=== PATIENT | male | born 1990 | race Two or more races ===

== ENCOUNTER 2023-11-21 17:33 | Emergency (ER) | payer OTHER, SELFPAY ==
[2023-11-21 17:40] VITALS: BP 138/94; PULSE 75; O2SAT 96
[2023-11-21 17:45] VITALS: BP 147/100; PULSE 96; RESP 18; TEMP 36.9; O2SAT 94; BMI 22.8
--- NOTE | 2023-11-21 18:12 | ED_ITS ---
HPI - Psych General Chief Complaint: ETOH/Substance Use Stated Complaint: withdrawl Time Seen by Provider: 11/21/23 18:12 Source: patient and EMS Mode of arrival: EMS Limitations: other (poor historian) History of Present Illness ED Provider: Daniel Wang PA-C HPI Narrative: 33-year-old male with a history of polysubstance abuse presents to the ER AMS from [facility] for evaluation of withdrawal from several substances. He is on a section 12. Patient reports he is withdrawing from heroin, fentanyl, crack, alcohol and has not had anything in 2 days. He received Ativan for withdrawal symptoms at 03:30 this afternoon. He states he smokes a bundle of fentanyl per day and drinks 1 pt of liquor per day. Last drug and alcohol use was 2 days ago. Earlier today he was at [facility] question of a senior care versus hospital and then was transferred to [facility] for treatment. He states he got 16 mg of Suboxone at some point today but made his symptoms worse. He feels increased restlessness. States he also got Ativan. He was about to be discharged from this [facility] when he was extremely frustrated that his symptoms were being controlled, he reported suicidal ideation and endorsed suicidal thoughts. No plan. No homicidal thoughts. No hallucinations. He states he has been on Suboxone and methadone in the past. Spoke with nurse at [facility] - she reports the patient came from [facility] around 3:50 today. Patient was initially brought to [facility] after being found sleeping on a park bench yesterday. Was reportedly detoxing there. He was complaining of chest pain and was cleared from a cardiac standpoint. When he was going to be discharged he reported suicidal ideation with plan to jump into traffic or overdose. He was exhibiting withdrawal symptoms and was treated with Ativan 3 mg and Suboxone 8 mg. On arrival to [facility] patient refused to shower, was very malodorous. He drank a bottle of mouthwash. He was lying on the ground kicking and very uncomfortable. He refused to partake in intake interview. He reports he was detoxing. Inpatient psychiatrist came to evaluate the patient who determined they were most likely experiencing detox symptoms and would benefit from hospital evaluation as they are primarily psych. Patient's home medication from general pharmacy include prazosin 1 mg every night, trazodone 100 mg every night, bupropion 300 mg daily, gabapentin 600 mg daily, Suboxone 1.5-2 tabs daily. Unclear who prescribes these medications the patient or what the underlying psych diagnoses are MD complaint: suicidal ideation, substance abuse and alcohol abuse Onset (ago): day(s) Duration: changing over time History of same: Yes Relieving factors: medication Exacerbating factors: alcohol and drug use Associated symptoms: nausea and other (Hopelessness, goose bumps skin, anxiety) Treatments prior to arrival: placed on mental health hold Related Data Allergies Allergy/AdvReac Type Severity Reaction Status Date / Time No Known Allergies Allergy Verified 11/21/23 17:49 Review of Systems 2 Review of Systems: Yes all other systems are reviewed and are negative [facility] Social History Social History Advance Directives: No Advance Directives Information Provided: No Do you have a plan to hurt others: No Plan Physical Exam 2 Vital Signs: Vital Signs: Last Vital Signs Temp 98.7 F 11/21/23 22:09 Pulse 62 11/21/23 22:09 Resp 18 11/21/23 22:09 BP 136/92 H 11/21/23 22:09 Pulse Ox 100 11/21/23 22:09 O2 Del Method Room Air 11/21/23 22:09 BMI result Body Mass Index 22.8 Appearance: Alert. Oriented X3. No acute distress. Calm and cooperative Head: normocephalic, atraumatic. Eyes: Pupils equal, round and reactive to light. ENT: Pharynx normal. No tonsillar swelling or exudate. Neck: Normal inspection. Neck supple. CVS: Normal heart rate and rhythm. Pulses normal. Respiratory: No respiratory distress. Breath sounds normal. Abdomen: Well-healed surgical scar over the right upper quadrant. Soft and nontender. +BS x4 Skin: Skin warm and dry. Normal skin color. Normal skin turgor. No rashes. Extremities: No lower extremity edema. No joint swelling. No tremors. Neuro/psych: Oriented X 3. No motor deficit. No sensory deficit. CN II-XII intact. Normal speech and cognition. Yawning. No suicidal thoughts. No hallucinations. Poor historian. Course Reevaluation(s) Reevaluation #1: Physician observation started at 20:59. Patient placed in physician observation because patient is awaiting CARE team evaluation for the possible need of inpatient psych admission. At the time observation was started patient's vital signs were stable. Patient is sleepuing comfortably. NO signs of active withdrawal at this time. Neuro exam is non-focal. CV: RRR and lungs are clear. Will continue to monitor. Time: 20:59 Reevaluation #2: Physician observation continued. Patient's vital signs remained stable. He is sleeping comfortably. No overt signs of withdrawal at this time. Will continue to monitor. Time: 23:10 Medical Decision Making Medical Decision Making [facility] Narrative: 33-year-old male with history of polysubstance abuse presents to the ER for evaluation of polysubstance withdrawal as well as suicidal thoughts. Patient states he was about to be discharged from [facility] here in [place] when he told them he was having suicidal thoughts because he did not feel like his withdrawal symptoms are being managed. Patient reports getting 16 mg of Suboxone earlier today, as well as Ativan, he can not say where he got these medications from. He has a very poor historian. Patient is medically cleared. He is made suicidal statements and reports ongoing withdrawal symptoms. Will continue to monitor CIWA and cows score. Will have him seen by the care team for evaluation. Differential Diagnosis Differential Diagnoses: The differential diagnosis associated with the presentation includes substance induced mood disorder, acute psychosis, schizophrenia, schizoaffective disorder, PTSD, bipolar disorder, major depression with psychotic features Admission/Observation Consideration of admission/observation: Escalation of care including admission/observation considered Lab Data [facility] Lab Attestation statement: I reviewed the patient's lab results. Mild mild leukocytosis, normal renal function, negative alcohol level 11/21/23 18:42 11/21/23 18:42 Labs: Lab Results 11/21/23 Range/Units 18:42 WBC 13.3 H (4.8-10.8) X10*3/uL RBC 5.21 (4.60-5.80) X10*6/uL Hgb 15.6 (14.0-18.0) g/dl Hct 44.4 (42.0-52.0) % MCV 85.2 (80.0-98.0) fL MCH 29.9 (27.0-33.0) pg MCHC 35.1 (31.0-36.0) g/dl RDW 12.4 (11.0-16.0) % Plt Count 300 (160-400) X10*3/uL MPV 9.1 L (9.4-12.4) fL Immature Gran % (Auto) 0.2 (0.0-0.4) % Neut % (Auto) 83.0 H (45-73) % Lymph % (Auto) 12.8 L (20-40) % Callaway % (Auto) 3.8 (2-11) % Eos % (Auto) 0.0 (0-4) % Baso % (Auto) 0.2 (0-2) % Lymph # (Auto) 1.7 (1.2-4.9) X10*3/uL Callaway # (Auto) 0.5 (0.1-1.2) X10*3/uL Eos # (Auto) 0.0 (0.0-0.4) X10*3/uL Baso # (Auto) 0.0 (0.0-0.2) X10*3/uL Abs Immat Gran (auto) 0.03 (0.00-0.03) X10*3/uL Absolute Neuts (auto) 11.0 H (2.0-8.3) x10*3/uL Absolute Nucleated RBC 0.000 (0.0-0.012) X10*3/uL Nucleated RBC % (auto) 0.0 (0.0-0.2) /100WBC Sodium 138 (135-145) mmol/L Potassium 3.7 (3.3-5.1) mmol/L Chloride 102 (96-108) mmol/L Carbon Dioxide 24 (22-29) mmol/L Anion Gap 16 (12-20) BUN 9 (9-16) mg/dL Creatinine 0.72 (0.5-1.4) mg/dL Estim Creat Clear Calc 139.1 Estimated GFR > 60 Random Glucose 112 (60-115) mg/dL Calcium 9.5 (8.4-10.2) mg/dL Magnesium 1.9 (1.6-2.6) mg/dL Total Bilirubin 0.5 (0.0-1.0) mg/dL Direct Bilirubin 0.2 (0.0-0.5) mg/dL AST 14 (5-37) U/L ALT 17 (0-40) U/L Alkaline Phosphatase 88 (39-117) U/L Total Protein 6.9 (6.5-8.0) g/dL Albumin 4.0 (3.5-5.0) g/dL Ethyl Alcohol < 10 mg/dL Independent Historian Clinical information obtained from an independent historian. History obtained from or confirmed by: EMS and Other (Nurse at [facility]) Prescription Management I considered prescription management with: Other (Antipsychotic, Ativan, Suboxone) Chronic Conditions Patient?s care impacted by: Other (Polysubstance abuse) Critical Care Time Critical Care Time Critical Care Time: No Discharge Plan Discharge Clinical Impression: Suicidal ideation, Polysubstance abuse Patient Disposition: Still a Patient Print Language: Bol[place]ian
--- NOTE | 2023-11-21 18:37 | PC.NURSE ---
only paperwork provided is section 12. call placed to [facility] to obtain more information on the patient, expecting a call back from production pattern maker provider to give information on this patient.
[2023-11-21 18:45] LABS: MANUAL DIFF FLAG NO
[2023-11-21 18:47] LABS: Basophils Percent Auto 0.2 % (0-2); Hematocrit 44.4 % (42.0-52.0); Hemoglobin 15.6 g/dl (14.0-18.0); Imm Gran Abs Auto 0.03 X10*3/uL (0.00-0.03); Imm Gran Pct Auto 0.2 % (0.0-0.4); Lymphocytes Absolute Auto 1.7 X10*3/uL (1.2-4.9); Lymphocytes Percent Auto 12.8 % (20-40); Mean Corpuscular HGB Conc 35.1 g/dl (31.0-36.0); Mean Corpuscular Hemoglobin 29.9 pg (27.0-33.0); Mean Corpuscular Volume 85.2 fL (80.0-98.0); Mean Platelet Volume 9.1 fL (9.4-12.4); Monocytes Absolute Auto 0.5 X10*3/uL (0.1-1.2); Monocytes Percent Auto 3.8 % (2-11); Platelet Count 300 X10*3/uL (160-400); Red Blood Count 5.21 X10*6/uL (4.60-5.80); Red Cell Distribution Width 12.4 % (11.0-16.0); White Blood Count 13.3 X10*3/uL (4.8-10.8)
[2023-11-21 19:03] LABS: Alanine Aminotransferase 17 U/L (0-40); Alkaline Phosphatase 88 U/L (39-117); Anion Gap 16 (12-20); Aspartate Amino Transferase 14 U/L (5-37); Bilirubin Direct 0.2 mg/dL (0.0-0.5); Bilirubin Total 0.5 mg/dL (0.0-1.0); Blood Urea Nitrogen 9 mg/dL (9-16); Calcium 9.5 mg/dL (8.4-10.2); Carbon Dioxide 24 mmol/L (22-29); Chloride 102 mmol/L (96-108); Creatinine Clr Calc Pharmacy 139.1; Estimated Glomerular Filt Rate > 60; Ethanol < 10 mg/dL; Glucose Random 112 mg/dL (60-115); Magnesium 1.9 mg/dL (1.6-2.6); Potassium 3.7 mmol/L (3.3-5.1); Sodium 138 mmol/L (135-145); Total Protein 6.9 g/dL (6.5-8.0)
[2023-11-21 20:02] VITALS: BP 135/94; PULSE 79; RESP 16; TEMP 36.6; O2SAT 97
[2023-11-21 22:09] VITALS: BP 136/92; PULSE 62; RESP 18; TEMP 37.1; O2SAT 100
[2023-11-22 00:57] VITALS: BP 160/88; PULSE 69; RESP 16; TEMP 37; O2SAT 96
[2023-11-22 01:11] LABS: Amphetamine Screen Urine Not Detected (Not Detect); Barbiturates, Urine Not Detected (Not Detect); Benzodiazepines Screen Urine Not Detected (Not Detect); Buprenorphine Scr Positive (Not Detect); Cannabinoid Screen Urine Not Detected (Not Detect); Cocaine Screen Urine POSITIVE (Not Detect); Fentanyl, urine POSITIVE (Not Detect); Methadone Screen, Urine Not Detected (Not Detect); Opiate Screen Urine POSITIVE (Not Detect); Oxycodone Screen Urine Not Detected (Not Detect); Phencyclidine Screen Urine Not Detected (Not Detect)
--- NOTE | 2023-11-22 06:35 | PC.NURSE ---
PT brought in to POD from 22h. Awaiting patient belonging list to be completed as PTs belongings were reportedly secured by security and Main fine unhairer.
--- NOTE | 2023-11-22 08:26 | PC.NURSE ---
Assumed care of patient at 0645, patient appears to be sleeping on couch in [facility], no apparent distress noted, respirations even and unlabored. Continue plan of care for CARE team assessment this am
[2023-11-22 10:30] VITALS: BP 118/68; PULSE 68; RESP 16; TEMP 36.3; O2SAT 95
[2023-11-22 11:23] VITALS: PULSE 68
--- NOTE | 2023-11-22 11:27 | PC.NURSE ---
Patient reporting withdrawal symptoms, COWS of 6. Jayleen Ghotra, property utilization officer aware
[2023-11-22] MEDS: Buprenorphine/Naloxone 4/1 mg FILM 1 FILM SUBLINGUAL (12:51)
[2023-11-22] MEDS: Buprenorphine/Naloxone 12/3 mg FILM 1 FILM SUBLINGUAL (12:51)
--- NOTE | 2023-11-22 13:10 | MHC.RECOVRN ---
T/W contacted by care team Yue and ER nurse Rosalia to meet with pt. and assess re: opiate W/D. Pt currently scoring a 6 on the COWS scale. his main sx are diarrhea, jayden temp changes, yawning and body aches. Pt reports he has been on both methadone and suboxone in the past for MAT and reports that both assisted him with maintaining sobriety. He reports being on 100mg of methadone approx 1 year ago and suboxone tx for 1 year (dose not given). Pt would like to re start suboxone. Received first dose at facility yesterday which precipitated W/D. Provider Amee Gonzalez contacted and gave recommendations for suboxone 16mg x 1 now. Contacted ED provider with request and also updated NING Lindsey. Care team updated and they will meet with pt. once he is comfortable to obtain D/C plan. ATS team available as needed. Will re assess tomorrow for ongoing treatment needs.
--- NOTE | 2023-11-22 14:38 | MHC.CARE ---
Patient evaluated by the CARE Team disposition is dual diagnosis inpatient psychiatric admission. ED provider, Dr. Soria updated.
[2023-11-22 16:50] VITALS: BP 142/91; PULSE 89; RESP 14; TEMP 36.9; O2SAT 95
--- NOTE | 2023-11-22 18:32 | MHC.CARE ---
Patient accepted to dual diagnosis inpatient unit for tonight Section 12A for transportation in patient?s chart, he is in agreement with this placement. POD RN, Rosalia and ED provider, Dr. Plummer updated after school coordinator: [place] [phone] Time: JAKE Accepting MD: Dr. Mccarty Address: [address] [address]
[2023-11-22 19:38] VITALS: BP 144/104; PULSE 98; RESP 16; TEMP 37.2; O2SAT 97
== END 2023-11-22 19:41 ==
PROVIDERS: Physician Assistant; Emergency Provider Emergency Medicine Emergency Medical Services
DX: F19.10 Other psychoactive substance abuse, uncomplicated (principal); R45.851 Suicidal ideations; F32.A Depression, unspecified; F43.10 Post-traumatic stress disorder, unspecified; F10.10 Alcohol abuse, uncomplicated; Y90.0 Blood alcohol level of less than 20 mg/100 ml
CPT/HCPCS: 36415; 80048; 80076; 80307; 83735; 85025; 99285; S9485